=== PATIENT | female | born 1955 | race Caucasian/White ===

== ENCOUNTER 2019-10-18 15:07 | Outpatient (CLI) | payer OTHER ==
[2019-10-18] MEDS ORDERED: AMLO-150 PO (15:59)
[2019-10-18] MEDS ORDERED: LOSA50TA14 PO (15:59)
[2019-10-18 16:20] LABS: BASOPHILS # (AUTO) 0.01 x10^3/uL (0-0.1); BASOPHILS % (AUTO) 0 % (0-1); EOSINOPHILS # (AUTO) 0.08 x10^3/uL (0-0.4); EOSINOPHILS % (AUTO) 1 % (1-7); LYMPHOCYTES # (AUTO) 1.37 x10^3/uL (1-3.4); LYMPHOCYTES % (AUTO) 21 % (22-44); MD NO; MEAN CORPUSCULAR HEMOGLOBIN 31.4 pg (27.0-34.8); MEAN CORPUSCULAR HGB CONC 33.4 g/dL (32.4-35.8); MEAN CORPUSCULAR VOLUME 94.1 fL (80-100); MEAN PLATELET VOLUME 7.6 fL (7.4-10.4); MONOCYTES # (AUTO) 0.33 x10^3/uL (0.2-0.8); MONOCYTES % (AUTO) 5 % (2-9); NEUTROPHILS # (AUTO) 4.87 x10^3/uL (1.8-6.8); NEUTROPHILS % (AUTO) 73 % (42-75); PLATELET COUNT 362 x10^3/uL (130-400); RED CELL DISTRIBUTION WIDTH 12.5 % (9.6-15.2)
[2019-10-18 16:31] LABS: ALANINE AMINOTRANSFERASE 18 U/L (12-78); ALBUMIN 4.3 g/dL (3.4-5.0); ANION GAP 5 mmol/L (5-15); CALCIUM 9.7 mg/dL (8.5-10.1); CHLORIDE 109 mmol/L (98-107); CREATININE 0.78 mg/dL (0.55-1.02)
[2019-10-18 16:33] LABS: ALKALINE PHOSPHATASE 89 U/L (45-117); BILIRUBIN,TOTAL 0.5 mg/dL (0.2-1.0); TOTAL PROTEIN 7.9 g/dL (6.4-8.2)
[2019-10-18 16:36] LABS: INTERNATIONAL NORMALIZED RATIO 0.98 (0.93-1.1); PROTHROMBIN TIME 10.4 Seconds (9.6-11.5)
== END 2019-10-18 23:59 | disposition home or self-care (01) ==
LOC: STAR 15:07
PROVIDERS: ATTEND Obstetrics & Gynecology
DX: Z01.818 Encounter for other preprocedural examination (principal); C54.1 Malignant neoplasm of endometrium; I21.09 ST elevation (STEMI) myocardial infarction involving other coronary artery of anterior wall
CPT/HCPCS: 36415; 71046; 80053; 85025; 85610; 85730; 93005

== ENCOUNTER 2019-10-24 08:19 | Day surgery (SDC) | payer OTHER ==
[~2019-10-24] VITALS: Ht 157.5 cm; Wt 78.2 kg
[~2019-10-24 08:19] MED LIST: AMLO-150 PO; LOSA50TA14 PO
[2019-10-24 08:45] VITALS: BP 169/78
[2019-10-24] MEDS ORDERED: CEFOTETAN PMX 2GM/50ML 50 ML ONE (08:57)
[2019-10-24] MEDS ORDERED: CHLORHEXIDINE 15 ML UDC ONE (08:57)
[2019-10-24] MEDS ORDERED: CEFOTETAN PMX 2GM/50ML 50 ML IV ONE (09:00)
[2019-10-24] MEDS ORDERED: CHLORHEXIDINE 15 ML UDC MM ONE (09:00)
[2019-10-24] MEDS: LACTATED RINGERS 1,000 ML IV SCH ×2 (09:00→17:12)
[2019-10-24] MEDS ORDERED: INDOCYANINE GREEN 25 MG VIAL ONE (10:27)
[2019-10-24] MEDS ORDERED: BUPIVACAINE/PF-EPI 0.25% 1:200K ONE (10:27)
[2019-10-24] MEDS ORDERED: MIDAZOLAM 1 MG/ML, 2ML ONE (10:58)
[2019-10-24] MEDS ORDERED: FENTANYL PF 250 MCG/5ML ONE (11:44)
[2019-10-24] MEDS ORDERED: HYDROmorphone 2 MG/ML, 1ML IVPush PRN (12:00)
[2019-10-24] MEDS ORDERED: FENTANYL PF 100 MCG/2ML IV PRN (12:00)
[2019-10-24] MEDS ORDERED: hydrALAzine 20 MG/ML, 1ML IV PRN (12:00)
[2019-10-24] MEDS ORDERED: MEPERIDINE/PF 25MG/0.5ML IVPush PRN (12:00)
[2019-10-24] MEDS ORDERED: ALBUTEROL SULFATE 2.5 MG/3 ML NPPB PRN (12:00)
[2019-10-24] MEDS ORDERED: LABETALOL 5MG/ML, 20ML IV PRN (12:00)
[2019-10-24] MEDS ORDERED: KETOROLAC 30 MG/1 ML IV PRN (12:00)
[2019-10-24] MEDS ORDERED: PROMETHAZINE 25 MG/ML, 1ML IV PRN (12:00)
[2019-10-24] MEDS ORDERED: OXYcodone 5 MG/5 ML ORAL.SOL UDC PO PRN (12:00)
[2019-10-24] MEDS ORDERED: ACETAMINOPHEN 325 MG TABLET PO PRN (12:00)
[2019-10-24] MEDS ORDERED: DIAZEPAM 5 MG/ML, 2ML IVPush PRN (12:00)
[2019-10-24] MEDS ORDERED: CHLORHEXIDINE 15 ML UDC MM STA (12:13)
[2019-10-24] MEDS ORDERED: ONDANSETRON 2MG/ML, 2ML ONE (13:59)
[2019-10-24] MEDS ORDERED: PROPOFOL 10 MG/ML, 20ML ONE (13:59)
[2019-10-24] MEDS ORDERED: SUGAMMADEX 200 MG/2 ML IVPush ONE (13:59)
[2019-10-24] MEDS ORDERED: DEXAMETHASONE 4 MG/ML, 1ML ONE (13:59)
[2019-10-24] MEDS ORDERED: NEOSTIGMINE 1 MG/ML, 10ML ONE (13:59)
[2019-10-24] MEDS ORDERED: SUCCINYLCHOLINE 20 MG/ML, 10ML ONE (13:59)
[2019-10-24] MEDS ORDERED: GLYCOPYRROLATE 0.2MG/1ML, 5ML ONE (13:59)
[2019-10-24] MEDS ORDERED: CEFAZOLIN 1,000 MG ONE (13:59)
[2019-10-24] MEDS ORDERED: ROCURONIUM 10MG/ML,5ML ONE (13:59)
[2019-10-24] MEDS ORDERED: MEPERIDINE/PF 50 MG/ML ONE (14:28)
[2019-10-24] MEDS ORDERED: MEPERIDINE/PF 25MG/ML,1ML ONE (14:47)
[2019-10-24] MEDS ORDERED: OXYcodone 5 MG/5 ML ORAL.SOL UDC ONE (14:48)
[2019-10-24] MEDS ORDERED: ONDANSETRON ODT 8 MG ONE (18:57)
[2019-10-24] MEDS ORDERED: ONDANSETRON ODT 8 MG PO ONE (19:00)
== END 2019-10-24 19:17 | disposition home or self-care (01) ==
LOC: OUT 08:19
PROVIDERS: ATTEND Obstetrics & Gynecology
DX: C54.1 Malignant neoplasm of endometrium (principal); N73.1 Chronic parametritis and pelvic cellulitis; N73.6 Female pelvic peritoneal adhesions (postinfective); I10 Essential (primary) hypertension; Z79.899 Other long term (current) drug therapy; Z87.891 Personal history of nicotine dependence; Z90.710 Acquired absence of both cervix and uterus; Z90.79 Acquired absence of other genital organ(s); Z83.2 Family history of diseases of the blood and blood-forming organs and certain disorders involving the immune mechanism; Z82.49 Family history of ischemic heart disease and other diseases of the circulatory system
CPT/HCPCS: 36415; 38572; 49321; 58661; 86304; 86850; 86900; 88112; 88305; J0330; J0690; J1100; J1885; J2175; J2250; J2405; J2704; J3010; J3490; J7120; Q0162; S2900; J2710

== ENCOUNTER 2020-01-09 18:02 | Emergency (ER) | payer OTHER ==
[~2020-01-09] VITALS: Ht 157.5 cm; Wt 48.0 kg
--- NOTE | 2020-01-09 18:09 | NUR ---
DANI. REPORT RECEIVED FROM EMS. [place] WAS TRANS[place] [facility] [place] ABDOMINAL ABC[place] BY CT AND SEPTIC THROMBOPHLEBITIS. C/O ABD PAIN WITH N/V. PT'S AOX4. RESPS EVEN AND UNLABORED. LAST DOSE OF DILAUDID AT 3:30PM TODAY. 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 ALL MONITORS IN PLACE. CALL LIGHT WITHIN REACH. DENIES ANY OTHER SX AT THIS TIME.
--- NOTE | 2020-01-09 18:39 | NUR ---
EDMD AT BEDSIDE TO EVALUATE AT THIS TIME.
--- NOTE | 2020-01-09 19:05 | NUR ---
assumed care of pt. report from Sharlene PACHECO. pt transferred here from [facility] [place] for [place]d pain R/O abscess. pt was medicated [employer] and denies nausea at this time. pt reports slight pain. Sitting up on gurney in position of comfort. no family at bedside.
--- NOTE | 2020-01-09 19:08 | NUR ---
REPORT GIVEN TO LORRI PACHECO.
--- NOTE | 2020-01-09 19:35 | NUR ---
Dr. Cee at bedside for recheck. pt to be admitted. no surgery tonight. OK fr pt to have regular meal tray per MD and per pt request. pt updated on POC
--- NOTE | 2020-01-09 19:54 | NUR ---
meal tray delivered
--- NOTE | 2020-01-09 20:52 | NUR ---
pt to be D/C and F/U outpatient per Dr. Cee. pt aware and has called her son for a ride
[2020-01-09 21:12] VITALS: BP 144/65
== END 2020-01-09 21:16 | disposition home or self-care (01) ==
LOC: ED 19:36
DX: I89.8 Other specified noninfective disorders of lymphatic vessels and lymph nodes (principal); R11.2 Nausea with vomiting, unspecified; I10 Essential (primary) hypertension; Z90.710 Acquired absence of both cervix and uterus
CPT/HCPCS: 99283

== ENCOUNTER 2020-01-11 13:45 | Day surgery (SDC) | payer OTHER ==
[~2020-01-11] VITALS: Ht 157.5 cm; Wt 49.3 kg
[2020-01-11 14:22] VITALS: BP 142/82
[2020-01-11] MEDS ORDERED: SODIUM CHLORIDE 0.9% 1,000 ML IV SCH ×2 (14:30→14:38)
[2020-01-11] MEDS ORDERED: NALOXONE 1 MG/ML, 2ML ONE (14:50)
[2020-01-11] MEDS ORDERED: FLUMAZENIL 0.1 MG/1 ML, 5ML ONE (14:50)
[2020-01-11] MEDS ORDERED: FENTANYL PF 100 MCG/2ML ONE (14:50)
[2020-01-11] MEDS ORDERED: MIDAZOLAM 1 MG/ML, 5ML ONE (14:50)
[2020-01-11] MEDS ORDERED: LIDOCAINE 1%, 10ML ONE (15:00)
== END 2020-01-11 17:20 | disposition home or self-care (01) ==
LOC: RAD 13:45 → EDSTATUS 15:00 → RAD 17:20
PROVIDERS: ATTEND Obstetrics & Gynecology
DX: R19.07 Generalized intra-abdominal and pelvic swelling, mass and lump (principal); C54.1 Malignant neoplasm of endometrium; I10 Essential (primary) hypertension; F17.210 Nicotine dependence, cigarettes, uncomplicated; Z79.899 Other long term (current) drug therapy; Z72.89 Other problems related to lifestyle; Z90.710 Acquired absence of both cervix and uterus; Z98.890 Other specified postprocedural states
CPT/HCPCS: 49406; 82570; 87070; 87075; 87077; 87205; 99156; C1894; J2250; J3010; J7030; 49405; 75989; 99157; J2310

== ENCOUNTER 2020-02-15 08:36 | Outpatient (CLI) | payer MEDICARE | END 2020-02-15 23:59 | disposition home or self-care (01) | LOC: ROC 08:36 | PROVIDERS: ATTEND Radiology Radiation Oncology | DX: C54.1 Malignant neoplasm of endometrium (principal); I10 Essential (primary) hypertension; Z90.710 Acquired absence of both cervix and uterus; Z87.891 Personal history of nicotine dependence; Z79.899 Other long term (current) drug therapy | CPT/HCPCS: G0463 ==

== ENCOUNTER → 2020-11-15 | Outpatient (CLI) | payer MEDICARE ==
[2020-11-15 15:52] LABS: BASOPHILS % (AUTO) 1 % (0-1); EOSINOPHILS % (AUTO) 1 % (1-7); LYMPHOCYTES % (AUTO) 24 % (22-44); MEAN CORPUSCULAR HEMOGLOBIN 31.6 pg (27.0-34.8); MEAN CORPUSCULAR HGB CONC 34.1 g/dL (32.4-35.8); MEAN PLATELET VOLUME 7.3 fL (7.4-10.4); MONOCYTES % (AUTO) 7 % (2-9); NEUTROPHILS % (AUTO) 68 % (42-75); PLATELET COUNT 319 x10^3/uL (130-400); RED BLOOD COUNT 4.65 x10^6/uL (3.82-5.3); RED CELL DISTRIBUTION WIDTH 13.2 % (9.6-15.2)
[2020-11-15 15:58] LABS: MD NO
[2020-11-15 16:03] LABS: ALBUMIN 4.1 g/dL (3.4-5.0); ANION GAP 3 mmol/L (5-15); CALCIUM 9.4 mg/dL (8.5-10.1); CHLORIDE 108 mmol/L (98-107)
[2020-11-15 16:05] LABS: INTERNATIONAL NORMALIZED RATIO 0.98 (0.93-1.1); PROTHROMBIN TIME 10.5 Seconds (9.6-11.5)
[2020-11-15 16:06] LABS: ALANINE AMINOTRANSFERASE 25 U/L (12-78); ALKALINE PHOSPHATASE 94 U/L (45-117); BILIRUBIN,TOTAL 0.5 mg/dL (0.2-1.0); CREATININE 0.64 mg/dL (0.55-1.02)
[2020-11-15 16:08] LABS: MICROSCOPIC INDICATED
== END | disposition home or self-care (01) ==
LOC: STAR 14:46
PROVIDERS: ATTEND Obstetrics & Gynecology
DX: Z01.818 Encounter for other preprocedural examination (principal); C54.1 Malignant neoplasm of endometrium; I82.890 Acute embolism and thrombosis of other specified veins; I51.7 Cardiomegaly; Z20.822 Contact with and (suspected) exposure to COVID-19
CPT/HCPCS: 36415; 71046; 80053; 81001; 85025; 85610; 85730; 87077; 87086; 93005; U0003; U0005; 87186

== ENCOUNTER 2020-11-19 08:41 | Day surgery (SDC) | payer MEDICARE ==
[~2020-11-19] VITALS: Ht 157.5 cm; Wt 50.3 kg
[2020-11-19 09:12] VITALS: BP 163/84
[2020-11-19] MEDS ORDERED: CHLORHEXIDINE 15 ML UDC ONE (09:23)
[2020-11-19] MEDS ORDERED: LACTATED RINGERS 1,000 ML IV SCH (09:30)
[2020-11-19] MEDS ORDERED: CEFOTETAN IVPB ONE (09:30)
[2020-11-19] MEDS ORDERED: CHLORHEXIDINE 15 ML UDC PO ONE (09:30)
[2020-11-19] MEDS ORDERED: SODIUM CHLORIDE 0.9% IVPB ONE (09:30)
[2020-11-19] MEDS ORDERED: CEFOTETAN 2 GM in SODIUM CHLORIDE 0.9% 50 ML IV ONE (09:30)
[2020-11-19] MEDS ORDERED: FENTANYL PF 250 MCG/5ML ONE (09:53)
[2020-11-19] MEDS ORDERED: OMNIPAQUE 350 MG/ML, 50 ML BOTTLE ONE (10:11)
[2020-11-19] MEDS ORDERED: DEXAMETHASONE 4 MG/ML, 1ML ONE ×2 (10:46→12:13)
[2020-11-19] MEDS ORDERED: ONDANSETRON 2MG/ML, 2ML ONE ×2 (10:46→12:13)
[2020-11-19] MEDS ORDERED: SUCCINYLCHOLINE 20 MG/ML, 10ML ONE (10:46)
[2020-11-19] MEDS ORDERED: GLYCOPYRROLATE 0.2MG/1ML, 5ML ONE (10:46)
[2020-11-19] MEDS ORDERED: NEOSTIGMINE 1 MG/ML, 10ML ONE (10:46)
[2020-11-19] MEDS ORDERED: ROCURONIUM 10MG/ML,5ML ONE (10:46)
[2020-11-19] MEDS ORDERED: PROPOFOL 10 MG/ML, 20ML ONE ×2 (10:46→12:13)
[2020-11-19] MEDS ORDERED: CEFAZOLIN 1,000 MG ONE ×2 (10:46→12:13)
[2020-11-19] MEDS ORDERED: EPHEDRINE 50 MG/ML, 1ML IVPush PRN (11:30)
[2020-11-19] MEDS ORDERED: METHOCARBAMOL 1,000 MG in DEXTROSE 5% 100 ML IV PRN (11:30)
[2020-11-19] MEDS ORDERED: hydrALAzine 20 MG/ML, 1ML IV PRN (11:30)
[2020-11-19] MEDS ORDERED: PROMETHAZINE 25 MG/ML, 1ML IVPush PRN (11:30)
[2020-11-19] MEDS ORDERED: LABETALOL 5MG/ML, 20ML IV PRN (11:30)
[2020-11-19] MEDS ORDERED: ONDANSETRON 2MG/ML, 2ML IVPush PRN (11:30)
[2020-11-19] MEDS ORDERED: LORazepam 2 MG/ML, 1ML IVPush PRN (11:30)
[2020-11-19] MEDS ORDERED: HYDROmorphone 1 MG/ML, 1ML INJ IVPush PRN (11:30)
[2020-11-19] MEDS ORDERED: OXYcodone 5 MG/5 ML ORAL.SOL UDC PO PRN (11:30)
[2020-11-19] MEDS ORDERED: ACETAMINOPHEN 325 MG TABLET PO PRN (11:30)
[2020-11-19] MEDS ORDERED: FENTANYL PF 100 MCG/2ML IV PRN (11:30)
== END 2020-11-19 12:45 | disposition home or self-care (01) ==
LOC: OUT 08:41
PROVIDERS: ATTEND Obstetrics & Gynecology
DX: N13.5 Crossing vessel and stricture of ureter without hydronephrosis (principal); C54.1 Malignant neoplasm of endometrium; I10 Essential (primary) hypertension; M81.0 Age-related osteoporosis without current pathological fracture; Z79.899 Other long term (current) drug therapy; Z98.890 Other specified postprocedural states; Z90.710 Acquired absence of both cervix and uterus; Z72.89 Other problems related to lifestyle; Z87.891 Personal history of nicotine dependence
CPT/HCPCS: 52332; 74420; C2617; J0330; J0690; J1100; J2405; J2704; J2710; J3010; J7120; Q9967

== ENCOUNTER 2021-03-21 15:55 | Outpatient (CLI) | payer MEDICARE ==
[2021-03-21 16:50] LABS: BASOPHILS % (AUTO) 0 % (0-1); EOSINOPHILS % (AUTO) 0 % (1-7); LYMPHOCYTES % (AUTO) 7 % (22-44); MEAN CORPUSCULAR HEMOGLOBIN 32.6 pg (27.0-34.8); MEAN CORPUSCULAR HGB CONC 34.8 g/dL (32.4-35.8); MEAN PLATELET VOLUME 7.2 fL (7.4-10.4); MONOCYTES % (AUTO) 6 % (2-9); NEUTROPHILS % (AUTO) 86 % (42-75); PLATELET COUNT 286 x10^3/uL (130-400); RED BLOOD COUNT 4.55 x10^6/uL (3.82-5.3); RED CELL DISTRIBUTION WIDTH 12.1 % (9.6-15.2)
[2021-03-21 16:59] LABS: ALBUMIN 4.3 g/dL (3.4-5.0); ANION GAP 8 mmol/L (5-15); CALCIUM 9.5 mg/dL (8.5-10.1); CHLORIDE 104 mmol/L (98-107); INTERNATIONAL NORMALIZED RATIO 0.93 (0.93-1.1)
[2021-03-21 17:03] LABS: ALANINE AMINOTRANSFERASE 20 U/L (12-78); ALKALINE PHOSPHATASE 96 U/L (45-117); BILIRUBIN,TOTAL 0.8 mg/dL (0.2-1.0); TOTAL PROTEIN 8.1 g/dL (6.4-8.2)
== END 2021-03-21 23:59 | disposition home or self-care (01) ==
LOC: STAR 15:55
PROVIDERS: ATTEND Obstetrics & Gynecology
DX: Z01.818 Encounter for other preprocedural examination (principal); C54.1 Malignant neoplasm of endometrium; N17.9 Acute kidney failure, unspecified; I82.890 Acute embolism and thrombosis of other specified veins; Z20.822 Contact with and (suspected) exposure to COVID-19
CPT/HCPCS: 80053; 85025; 85610; 85730; 87635; 93005

== ENCOUNTER 2021-03-25 11:07 | Day surgery (SDC) | payer MEDICARE ==
[~2021-03-25] VITALS: Ht 157.5 cm; Wt 50.4 kg
[2021-03-25] MEDS ORDERED: CEFOTETAN PMX 2GM/50ML 50 ML IVPB ONE (11:30)
[2021-03-25] MEDS ORDERED: LACTATED RINGERS 1,000 ML IV SCH (11:30)
[2021-03-25] MEDS ORDERED: CHLORHEXIDINE 15 ML UDC PO ONE (11:30)
[2021-03-25 11:36] VITALS: BP 136/83
[2021-03-25] MEDS ORDERED: CHLORHEXIDINE 15 ML UDC ONE (11:40)
[2021-03-25] MEDS ORDERED: OMNIPAQUE 350 MG/ML, 50 ML BOTTLE ONE (13:28)
[2021-03-25] MEDS ORDERED: FENTANYL PF 100 MCG/2ML ONE (13:52)
[2021-03-25] MEDS ORDERED: ONDANSETRON 2MG/ML, 2ML ONE (14:16)
[2021-03-25] MEDS ORDERED: DEXAMETHASONE 4 MG/ML, 1ML ONE (14:16)
[2021-03-25] MEDS ORDERED: CEFAZOLIN 1,000 MG ONE (14:16)
[2021-03-25] MEDS ORDERED: PROPOFOL 10 MG/ML, 20ML ONE (14:16)
[2021-03-25] MEDS ORDERED: METOPROLOL 1 MG/ML, 5ML IV PRN (14:30)
[2021-03-25] MEDS ORDERED: PROMETHAZINE 25 MG SUPP PR PRN (14:30)
[2021-03-25] MEDS ORDERED: ONDANSETRON 2MG/ML, 2ML IVPush PRN (14:30)
[2021-03-25] MEDS ORDERED: HYDROmorphone 1 MG/ML, 1ML INJ IVPush PRN (14:30)
[2021-03-25] MEDS ORDERED: OXYcodone 5 MG/5 ML ORAL.SOL UDC PO PRN (14:30)
[2021-03-25] MEDS ORDERED: LORazepam 2 MG/ML, 1ML IVPush PRN (14:30)
[2021-03-25] MEDS ORDERED: ACETAMINOPHEN 325 MG TABLET PO PRN (14:30)
[2021-03-25] MEDS ORDERED: LABETALOL 5MG/ML, 20ML IV PRN (14:30)
[2021-03-25] MEDS ORDERED: hydrALAzine 20 MG/ML, 1ML IV PRN (14:30)
[2021-03-25] MEDS ORDERED: METHOCARBAMOL 1,000 MG in DEXTROSE 5% 100 ML IV PRN (14:30)
[2021-03-25] MEDS ORDERED: FENTANYL PF 100 MCG/2ML IV PRN (14:30)
[2021-03-25] MEDS ORDERED: PROMETHAZINE 25 MG/ML, 1ML IVPush PRN (14:30)
== END 2021-03-25 16:02 | disposition home or self-care (01) ==
LOC: OUT 11:07
PROVIDERS: ATTEND Obstetrics & Gynecology
DX: Z46.6 Encounter for fitting and adjustment of urinary device (principal); I10 Essential (primary) hypertension; Z79.899 Other long term (current) drug therapy; Z90.710 Acquired absence of both cervix and uterus; Z90.722 Acquired absence of ovaries, bilateral; Z90.79 Acquired absence of other genital organ(s); Z85.42 Personal history of malignant neoplasm of other parts of uterus; Z82.49 Family history of ischemic heart disease and other diseases of the circulatory system
CPT/HCPCS: 36415; 52005; 74420; 86850; 86900; C1758; C1769; J1100; J2405; J2704; J3010; J7120; Q9967; J0690